=== PATIENT | female | born 1965 | race Two or more races ===

== ENCOUNTER 2024-02-27 11:39 | Emergency (ER) | payer OTHER ==
[~2024-02-27] VITALS: Ht 157.5 cm; Wt 68.0 kg
[2024-02-27] MEDS ORDERED: TDAP DIPH,PERTUSS,TET VAC/PF 0.5 ML DISP.SYRIN IM ONE (11:50)
[2024-02-27] MEDS ORDERED: NEOMY/BACITRA/POLYMYXIN B OINT UD PACKET TP ONE (11:51)
[2024-02-27] MEDS: TDAP DIPH,PERTUSS,TET VAC/PF 0.5 ML DISP.SYRIN IM ONE (11:55)
[2024-02-27] MEDS: NEOMY/BACITRA/POLYMYXIN B OINT UD PACKET TP ONE (11:56)
[2024-02-27] MEDS ORDERED: AMOX-430 PO (11:58)
[2024-02-27 12:08] VITALS: BP 126/88; O2SAT 99
== END 2024-02-27 12:09 | disposition home or self-care (01) ==
LOC: ER 11:39
DX: S30.1XXA Contusion of abdominal wall, initial encounter (principal); W54.0XXA Bitten by dog, initial encounter; Y93.89 Activity, other specified; Y92.89 Other specified places as the place of occurrence of the external cause; Y99.8 Other external cause status
CPT/HCPCS: 90715; A4606; A4663